=== PATIENT | male | born 1970 | race Caucasian/White ===

== ENCOUNTER 2016-08-07 09:58 | Emergency (ER) | payer OTHER ==
[~2016-08-07] VITALS: Wt 68.0 kg
[2016-08-07] MEDS ORDERED: ONDANSETRON (ODT) 4 MG TAB ODT STA (10:34)
[2016-08-07] MEDS ORDERED: ONDA8TAB14 PO (11:08)
--- NOTE | 2016-08-07 11:22 | ERD ---
ER Documentation Chief Complaint Date/Time DATE: 08/07/16 TIME: 11:21 Chief Complaint NAUSEA VOMITING AND DECREASED APPETITE AFTER GETTING BUVITROL SHOT HPI This 46-year-old male complains of nausea and vomiting decreased appetite. He believes the symptoms started after getting a Vivitrol shot a few days ago for alcohol abuse. May have felt some chills and had a cough as well. His vomiting is usually with coughing. He also has some dizziness today but has no symptoms currently. ROS All systems reviewed and are negative except as per history of present illness. Medications Home Meds Active Scripts Ondansetron (Ondansetron Odt) 8 Mg Tab.rapdis, 8 MG PO Q6H Y for NAUSEA AND/OR VOMITING, #10 TAB Prov:JOHN GUADARRAMA MD 08/07/16 PMhx/Soc Medical and Surgical Hx: pt denies Medical Hx, pt denies Surgical Hx Hx Alcohol Use: No Hx Substance Use: No Hx Tobacco Use: Yes Smoking Status: Current every day smoker Physical Exam Vitals Vital Signs Date Time Temp Pulse Resp B/P Pulse Ox O2 Delivery O2 Flow Rate FiO2 08/07/16 10:01 98.8 82 21 129/71 97 Physical Exam Const: [] Alert, [id number] per Head: Atraumatic Eyes: Normal Conjunctiva ENT: Normal External Ears, Nose and Mouth. Neck: Full range of motion..~ No meningismus. Resp: Clear to auscultation bilaterally Cardio: Regular rate and rhythm, no murmurs Abd: Soft, non tender, non distended. Normal bowel sounds Skin: No petechiae or rashes Back: No midline or flank tenderness Ext: No cyanosis, or edema Neur: Awake and alert. No appreciable focal neurologic deficits per Psych: Normal Mood and Affect Results 24 hrs Laboratory Tests Test 08/07/16 10:47 Bedside Glucose 91mg/dL Current Medications Medications (Trade) Dose Ordered Sig/Martine Route PRN Reason Start Time Stop Time Status Last Admin Dose Admin Ondansetron HCl (Zofran Odt) 8 mg ONCE STAT ODT 08/07/16 10:34 08/07/16 10:35 DC 08/07/16 10:39 Procedures/MDM Accu-Chek was normal. Patient was given Zofran 8 mg of mouth. Patient felt better after serial exam and was wishing to leave so he can go to [id number] and eat. Patient shows no signs of acute abdomen, obstruction, meningitis, neurologic deficits, chest pain or shortness of breath. Patient may be having side effects from withdrawal although he may have a viral illness as well as the cause of his symptoms. He was discharged home a short course of Zofran and further observation at home. The patient was stable with no new complaints during the ER course. Clinically, there is no current evidence to suggest meningitis, sepsis, acute abdomen, pneumonia, acute coronary syndrome, pulmonary embolism, or any other emergent condition appearing to require further evaluation or hospitalization. The patient should certainly return for any new or worsening symptoms per the aftercare instructions. They should otherwise follow-up with her primary care doctor for reevaluation this week. Departure Diagnosis: Primary Impression: Nausea and vomiting Vomiting type: unspecified Vomiting Intractability: unspecified Qualified Code: R11.2 - Nausea and vomiting, intractability of vomiting not specified, unspecified vomiting type Condition: Stable Patient Instructions: Nausea and Vomiting-Adult Additional Instructions: Recheck for new or worsening symptoms with primary care doctor. JOHN GUADARRAMA MD Aug 07, 2016 11:22
== END 2016-08-07 11:25 | disposition home or self-care (01) ==
LOC: FTE 09:58
DX: R11.2 Nausea with vomiting, unspecified (principal); F17.210 Nicotine dependence, cigarettes, uncomplicated
CPT/HCPCS: 82962; Z7502; Z7610; 99283